=== PATIENT | female | born 1995 | race African-American/Black ===

== ENCOUNTER 2025-03-21 10:30 | Emergency (ER) | payer OTHER ==
[~2025-03-21] VITALS: Ht 162.6 cm; Wt 63.6 kg
[2025-03-21 10:36] VITALS: TEMP 98.2
[2025-03-21 11:06] LABS: CALCIUM, TOTAL 9.3 mg/dL (8.8-10.5); CREATININE 0.52 mg/dL (0.60-1.30); GLOMERULAR FILTR. RATE CALC > 60 mL/min (>60); GLUCOSE,RANDOM 128 mg/dL (70-110); SODIUM SERUM 138 mmol/L (136-145); UREA NITROGEN, BLOOD 10 mg/dL (7-18)
[2025-03-21 11:11] LABS: PLATELET COUNT (AUTO) 350 K/uL (150-450); RED BLOOD CELL COUNT(AUTO) 4.70 MIL/uL (4.00-5.20); RED CELL DISTRIBUTION WIDTH 13.8 % (11.5-14.5); WHITE BLOOD COUNT (AUTO) 4.0 K/uL (4.5-11.0)
[2025-03-21 11:13] LABS: ASPARTATE AMINOTRANSFERASE 127.0 U/L (15-37); TOTAL PROTEIN, SERUM 8.0 g/dL (6.4-8.2)
[2025-03-21 11:17] LABS: TROPONIN I-HIGH SENSITIVITY 8 ng/L (<51)
[2025-03-21] MEDS: SODIUM CHLORIDE 0.9% 1,000 ML IV ONE (11:21)
[2025-03-21] MEDS: KETOROLAC TROMETHAMINE 30 MG/ML VIAL IVP ONE (11:21)
[2025-03-21] MEDS: OMEPRAZOLE 20 MG CAPSULE PO ONE (11:21)
[2025-03-21] MEDS: ACETAMINOPHEN 500 MG TABLET PO ONE (11:21)
[2025-03-21] MEDS: ONDANSETRON HCL 4 MG/2 ML VIAL IVP ONE (11:21)
[2025-03-21 11:33] LABS: BAND NEUTROPHILS % (MANUAL) 1 % (0-5); BASOPHILS % (MANUAL) 1 % (0-2); LYMPHOCYTES % (MANUAL) 37 % (22-44); MONOCYTES % (MANUAL) 16 % (2-9); SEGMENTED NEUTROPHILS % 45 % (40-70)
[2025-03-21 11:49] LABS: APPEARANCE,URINE CLEAR (CLEAR); GLUCOSE, URINE (UA) NEGATIVE (NEGATIVE); LEUKOCYTE ESTERASE ,URINE NEGATIVE (NEGATIVE); NITRATE,URINE NEGATIVE (NEGATIVE); OCCULT BLOOD,URINE TRACE (NEGATIVE); SPECIFIC GRAVITIY, URINE 1.014 (1.003-1.030)
[2025-03-21 12:10] LABS: SQUAMOUS EPITHELIAL CELL,UR Few /LPF (None Seen)
[2025-03-21 13:35] VITALS: BP 126/59; PULSE 89; RESP 18; O2SAT 99
[2025-03-21] MEDS ORDERED: ACET-66 PO (13:38)
[2025-03-21] MEDS ORDERED: OMEP-148 PO (13:38)
== END 2025-03-21 14:32 | disposition home or self-care (01) ==
LOC: EMS 10:36
DX: R10.84 Generalized abdominal pain (principal); D25.9 Leiomyoma of uterus, unspecified
CPT/HCPCS: 99285; 76705; 96374; 96361; 96375; 80048; 80076; 81001; 83690; 84484; 84703; 85025; 36415; 76856; 93005; J1885; J2405; J7030